=== PATIENT | male | born 1985 | race Caucasian/White ===

== ENCOUNTER 2023-11-05 16:42 | Emergency (ER) | payer OTHER ==
[~2023-11-05] VITALS: Ht 185.4 cm; Wt 93.2 kg
[2023-11-05 16:51] VITALS: TEMP 97.8
[2023-11-05 18:13] LABS: BASO # 0.1 K/mm3 (0.0-0.2); BASO % 1.3 % (0.0-2.0); EOS # 0.2 K/mm3 (0.0-0.7); EOS % 3.1 % (0.0-4.0); GRAN % 55.6 % (42.2-75.2); HEMATOCRIT 45.8 % (42.0-52.0); HEMOGLOBIN 15.9 g/dl (13.5-18.0); LYMPH # 2.4 K/mm3 (1.2-3.4); LYMPH % 33.6 % (20.0-51.0); MEAN CELL VOLUME 86 fl (80.0-100.0); MEAN CORPUSCULAR HEMOGLOBIN 30 pg (27-31); MEAN CORPUSCULAR HGB CONC 35 g/dl (33.0-37.0); MEAN PLATELET VOLUME 10.5 fl (7.4-10.4); MONO # 0.5 K/mm3 (0.1-0.6); MONO % 6.3 % (1.7-9.3); PLATELET COUNT 212 K/mm3 (130-400); REDCELL DISTRIBUTION WIDTH-CV 12.2 % (11.5-14.5)
[2023-11-05 18:29] LABS: ALANINE AMINOTRANSFERASE 29 U/L (0-55); ALBUMIN 4.7 g/dL (3.5-5.0); ALKALINE PHOSPHATASE 44 U/L (40-150); ANION GAP 10 mmol/L (7-16); AST,SGOT 17 U/L (5-34); BILIRUBIN,TOTAL 0.6 mg/dL (0.2-1.2); BLOOD UREA NITROGEN 11 mg/dL (9-21); C-REACTIVE PROTEIN 0.05 mg/dL (0.00-0.50); CALCIUM 10.1 mg/dL (8.4-10.2); CHLORIDE 105 mEq/L (98-107); GLUCOSE 98 mg/dL (70-99); POTASSIUM 3.5 mEq/L (3.5-4.5); SODIUM 140 mEq/L (136-145); TOTAL PROTEIN 8.1 g/dl (6.2-8.1)
[2023-11-05 18:38] LABS: TROPONIN-I < 0.010 ng/mL (0.00-0.033)
[2023-11-05 19:55] VITALS: BP 138/96; PULSE 84
== END 2023-11-05 19:56 | disposition home or self-care (01) ==
LOC: COL.ER 16:42
PROVIDERS: Nurse Practitioner
DX: R07.9 Chest pain, unspecified (principal); Z87.891 Personal history of nicotine dependence